=== PATIENT | female | born 1980 | race Caucasian/White ===

== ENCOUNTER 2016-12-09 11:26 | Emergency (ER) | payer MEDICAID ==
[~2016-12-09] VITALS: Ht 165.1 cm; Wt 90.5 kg
[2016-12-09 11:27] VITALS: BP 136/83; PULSE 62; RESP 20; TEMP 98.7; O2SAT 99
[2016-12-09] MEDS ORDERED: FLUT1INH INH (13:53)
[2016-12-09] MEDS ORDERED: AZIT250T3 PO (13:53)
[2016-12-09] MEDS ORDERED: PRED20 PO (13:53)
--- NOTE | 2016-12-09 13:53 | PD ---
HPI Chief Complaint: Cold / Flu Symptoms Time Seen by Provider: 13:35 Travel History International Travel<30 days: No Contact w/Intl Traveler<30days: No Traveled to known affect area: No History of Present Illness HPI 36-year-old female with history of asthma presents to emergency room for evaluation of cough and reported wheezing 2 weeks. Patient reports she originally developed what sounds like URI and has turned into a productive cough with wheezing and shortness of breath. Patient reports she frequently has to be put on steroids with upper respiratory infections due to her asthma. She is requesting refill of her BREO inhaler. She reports she recently moved here and is awaiting to meet with her new PCP in December. She denies chest pain , nausea, vomiting, fever. [facility] Past Medical History Narrative Medical Significant for asthma, lupus Respiratory: Yes (ASTHMA) Social History Tobacco Use: No Allergies-Medications (Allergen,Severity, Reaction): Coded Allergies: Bactrim (Verified Allergy, Unknown, UNCONCIOUS, 12/09/16) Penicillin (Verified Allergy, Unknown, RASH, 12/09/16) Sulfa (Verified Allergy, Unknown, 12/09/16) Reported Meds & Prescriptions Reported Meds & Active Scripts Active Breo Ellipta Inh (Fluticasone/Vilanterol) 100-25 Mcg/Act Inh 1 Puff INH DAILY Use daily at the same time. Prednisone 20 Mg Tab 40 Mg PO DAILY Take 40 mg (2 tablets) daily for 5 days Azithromycin 250 Mg Tab 250 Mg PO DIRECTED Take 2 tabs (500 mg) on day 1 then 1 tab daily x 4 days. Review of Systems Except as stated in HPI: all other systems reviewed are Neg General / Constitutional: No: Fever Eyes: No: Visual changes HENT: No: Headaches Cardiovascular: No: Chest Pain or Discomfort Respiratory: Positive: Cough, Wheezing Physical Exam Narrative GENERAL: Well-nourished, well-developed patient. SKIN: Focused skin assessment warm/dry. HEAD: Normocephalic. EYES: No scleral icterus. No injection or drainage. NECK: Supple, trachea midline. No JVD or lymphadenopathy. CARDIOVASCULAR: Regular rate and rhythm without murmurs, gallops, or rubs. RESPIRATORY: Breath sounds equal bilaterally. No accessory muscle use. GASTROINTESTINAL: Abdomen soft, non-tender, nondistended. MUSCULOSKELETAL: No cyanosis, or edema. BACK: Nontender without obvious deformity. No CVA tenderness. Data Data Last Documented VS Vital Signs Date Time Temp Pulse Resp B/P Pulse Ox O2 Delivery O2 Flow Rate FiO2 12/09/16 14:14 99 Room Air 12/09/16 11:27 98.7 62 20 136/83 Orders Ketorolac Inj (Toradol Inj) (12/09/16 14:15) MDM Medical Decision Making Medical Screen Exam Complete: Yes Emergency Medical Condition: Yes Differential Diagnosis URI, bronchitis, pneumonia, asthma Narrative Course 36-year-old female with history of asthma presents to emergency room for evaluation of cough and reported wheezing 2 weeks. Patient reports she originally developed what sounds like URI and has turned into a productive cough with wheezing and shortness of breath. Patient reports she frequently has to be put on steroids with upper respiratory infections due to her asthma. She is requesting refill of her BREO inhaler. She reports she recently moved here and is awaiting to meet with her new PCP in December. She denies chest pain , nausea, vomiting, fever. Her physical exam is reassuring. Her physical exam is consistent with bronchitis. Patient will be put on azithromycin, prednisone and given a prescription refill for BREO inhaler. Return precautions discussed. Patient verbalizes understanding. Diagnosis Primary Impression: Bronchitis Additional Impression: Asthma Qualified Code: J45.909 - Uncomplicated asthma, unspecified asthma severity Referrals: Primary Care Physician Additional Instructions: Take the antibiotics as prescribed. Take the steroids as prescribed. They were given a prescription refill of your BREO inhaler. Follow-up with her primary care doctor at your scheduled appointment. Scripts Fluticasone-Vilanterol Inh (Breo Ellipta Inh)100-25 Mcg/Act Inh1 Puff INH DAILY #1 INHALER Ref 0 Use daily at the same time. Prov:Ashleigh Bynum 12/09/16 Prednisone 20 Mg Tab40 Mg PO DAILY #10 TAB Take 40 mg (2 tablets) daily for 5 days Prov:Ashleigh Bynum 12/09/16 Azithromycin 250 Mg [id number] Mg PO DIRECTED #6 TAB Take 2 tabs (500 mg) on day 1 then 1 tab daily x 4 days. Prov:Ashleigh Bynum 12/09/16 Disposition: 01 DISCHARGE HOME Ashleigh Byunm Dec 09, 2016 13:53
[2016-12-09] MEDS ORDERED: KETOROLAC TROMETHAMINE 60 MG/2 ML (IM) VIAL IM ONE (14:15)
[2016-12-16] MEDS ORDERED: SERO400T PO (13:38)
[2016-12-16] MEDS ORDERED: HYDR100C PO (13:38)
[2016-12-16] MEDS ORDERED: TAPE100T PO (13:38)
[2016-12-16] MEDS ORDERED: LIDO1PAD52 TOPICAL (13:38)
[2016-12-16] MEDS ORDERED: ALBUAER3 INH ×2 (13:38→15:06)
[2016-12-16] MEDS ORDERED: META1TAB19 PO (13:38)
[2016-12-16] MEDS ORDERED: NUCY75TA4 PO (13:38)
[2016-12-16] MEDS ORDERED: BECL80AE3 INH (15:06)
== END 2016-12-09 14:17 | disposition home or self-care (01) ==
LOC: NEPK 11:26
DX: J40 Bronchitis, not specified as acute or chronic (principal); J45.909 Unspecified asthma, uncomplicated; M32.9 Systemic lupus erythematosus, unspecified; Z79.899 Other long term (current) drug therapy; Z88.0 Allergy status to penicillin; Z88.2 Allergy status to sulfonamides
CPT/HCPCS: 96372; 99284; J1885

== ENCOUNTER 2017-08-23 12:16 | Emergency (ER) | payer MEDICAID ==
[~2017-08-23] VITALS: Ht 165.1 cm; Wt 105.8 kg
[~2017-08-23 12:16] MED LIST: ALBUAER3 INH; BECL80AE3 INH; HYDR100C PO; LIDO1PAD52 TOPICAL; META1TAB19 PO; NUCY100T9 PO; NUCY75TA5 PO; SERO400T PO
[2017-08-23 12:23] VITALS: BP 146/67; PULSE 79; RESP 16; TEMP 98.9; O2SAT 97
[2017-08-23] MEDS ORDERED: ORPHENADRINE INJ 60 MG/2 ML AMP IM ONE (13:30)
[2017-08-23] MEDS ORDERED: KETOROLAC TROMETHAMINE 60 MG/2 ML (IM) VIAL IM ONE (13:30)
[2017-08-23] MEDS ORDERED: ROBA750T PO (13:33)
--- NOTE | 2017-08-23 13:33 | PD ---
HPI Chief Complaint: Back/ Neck Pain or Injury Time Seen by Provider: 13:00 Travel History International Travel<30 days: No Contact w/Intl Traveler<30days: No Traveled to known affect area: No History of Present Illness HPI 37-year-old female presents to the emergency room for evaluation of left lower back pain for the past 3-4 days. Patient states she has been cleaning a lot lately and reaching up into the ear. She developed excruciating, sharp, left lower back pain that is worsened with any range of motion. Pain is sharp in nature. States in certain positions she is pain-free. She has been taking over -the-counter Tylenol Motrin without any relief in symptoms. Patient has had similar pain in the past but never this severe. Denies chronic back pain. Patient denies loss of bowel or bladder control, lower extremity paresthesias, IV drug use, weight loss, night sweats, fever, chills, saddle anesthesia. Denies any chronic medical conditions or daily medications. PFSH Past Medical History Arthritis: Yes (osteo) Anxiety: Yes Diminished Hearing: No Fibromyalgia: Yes Neurologic: Yes (lupus) Respiratory: Yes (asthma) Immunizations Current: Yes Tetanus Vaccination: Unknown Influenza Vaccination: No ?: Not LMP: 2 weeks ago Past Surgical History Abdominal Surgery: Yes (laparoscopy) Section: Yes Social History Alcohol Use: No Tobacco Use: No Substance Use: No Allergies-Medications (Allergen,Severity, Reaction): Coded Allergies: venlafaxine (Unverified Allergy, Severe, seizures, 08/23/17) Sulfa (Sulfonamide Antibiotics) (Unverified Allergy, Unknown, 08/23/17) penicillin G (Unverified Allergy, Unknown, RASH, 08/23/17) sulfamethoxazole (Unverified Allergy, Unknown, UNCONCIOUS, 08/23/17) trimethoprim (Unverified Allergy, Unknown, UNCONCIOUS, 08/23/17) Reported Meds & Prescriptions Reported Meds & Active Scripts Active Reported Hydroxyzine Pamoate 100 Mg Cap 100 Mg PO QID PRN Review of Systems Except as stated in HPI: all other systems reviewed are Neg Physical Exam Narrative GENERAL: Well-nourished, well-developed female no acute distress. Afebrile. Ambulatory. SKIN: Focused skin assessment warm/dry. HEAD: Normocephalic. EYES: No scleral icterus. No injection or drainage. NECK: Supple, trachea midline. No JVD or lymphadenopathy. CARDIOVASCULAR: Regular rate and rhythm without murmurs, gallops, or rubs. RESPIRATORY: Breath sounds equal bilaterally. No accessory muscle use. BACK: No midline tenderness. No obvious deformity. No CVA tenderness. Tenderness to palpation of the left lower lumbar region. 1+ patellar and Achilles reflexes are equal bilaterally. Positive straight leg raise on the left. Data Data Last Documented VS Vital Signs Date Time Temp Pulse Resp B/P (MAP) Pulse Ox O2 Delivery O2 Flow Rate FiO2 08/23/17 12:23 98.9 79 16 146/67 (93) 97 Orders Orders Orphenadrine Inj (Norflex Inj) (08/23/17 13:30) Ketorolac Inj (Toradol Inj) (08/23/17 13:30) MDM Medical Decision Making Medical Screen Exam Complete: Yes Emergency Medical Condition: Yes Medical Record Reviewed: Yes Differential Diagnosis Muscle spasm, strain, fracture, contusion Narrative Course 37-year-old female presents to the emergency room for evaluation of left lower back pain for the past 3-4 days. Patient denies any trauma. States she has been cleaning a lot and may have thrown out her back. No red flag symptoms. Physical exam reveals no midline tenderness. No obvious deformity. No CVA tenderness. Tenderness to palpation of the left lower lumbar region. 1+ patellar and Achilles reflexes are equal bilaterally. Positive straight leg raise on the left. Likely muscle strain. Patient given Toradol and Norflex in the emergency room. She will be discharged with prescriptions for ibuprofen and Robaxin. Told to follow-up with primary care physician for outpatient MRI if symptoms persist. She will return for worsening symptoms. She understands and agrees to plan. Diagnosis Primary Impression: Low back strain Qualified Codes: S39.012A - Strain of muscle, fascia and tendon of lower back , initial encounter Referrals: Primary Care Physician Additional Instructions: Rest and drink plenty of fluids. Take Robaxin as directed, as needed for pain. Take ibuprofen with food as directed, as needed for pain. Apply ice to the affected area for 20 minutes at a time, as needed for pain and swelling. Follow-up with a primary care physician. Return to the emergency room for worsening symptoms. Med/Other Pt SpecificInfo: Prescription(s) given Disposition: 01 DISCHARGE HOME Condition: Stable Beth Ascencio Aug 23, 2017 13:33
== END 2017-08-23 13:47 | disposition home or self-care (01) ==
LOC: PHEFT 12:16
DX: S39.012A Strain of muscle, fascia and tendon of lower back, initial encounter (principal); X58.XXXA Exposure to other specified factors, initial encounter; F41.9 Anxiety disorder, unspecified; J45.909 Unspecified asthma, uncomplicated; M32.9 Systemic lupus erythematosus, unspecified; M79.7 Fibromyalgia; M19.90 Unspecified osteoarthritis, unspecified site
CPT/HCPCS: 96372; 99283; J1885; J2360